=== PATIENT | female | born 1995 | race Two or more races ===

== ENCOUNTER 2021-08-13 09:38 | Emergency (ER) | payer OTHER ==
[~2021-08-13] VITALS: Ht 152.4 cm; Wt 56.0 kg
[2021-08-13 12:39] VITALS: BP 107/66
== END 2021-08-13 12:46 | disposition home or self-care (01) ==
LOC: EMS 09:42
DX: Z11.1 Encounter for screening for respiratory tuberculosis (principal)
CPT/HCPCS: 71045; 99283